=== PATIENT | female | born 1950 | race Caucasian/White ===

== ENCOUNTER 2016-10-11 10:52 | Day surgery (SDC) | payer MEDICARE ==
--- NOTE | ~2016-10-11 | EGD ---
EGD REPORT [facility] [address] [id number] NAME: KJ SANCHEZ : [birth year] STATUS : [place] [facility] [place] PAT#: [id number] AGE: 66 ADM/REG DATE : 10/11/16 MR#: [id number] REPORT SERV DATE: 10/11/16 DICTATED BY: SUSAN GATES DATE: 10/11/16 REPORT STATUS : Draft TRANSCRIBED BY: [facility] DATE: 10/11/16 [facility] Center Patient Name: Kj Sanchez Date of : 1950 Attending MD: SUSAN GATES MD Procedure Date No Time: 10/11/2016 Procedure: Upper GI endoscopy Indications: Oropharyngeal phase dysphagia, Esophageal dysphagia, Dysphagia Referring MD: SILKE PRINCE MD Medicines: Monitored Anesthesia Care Complications: No immediate complications. Procedure: Pre-Anesthesia Assessment: - ASA Grade Assessment: III - A patient with severe systemic disease. After obtaining informed consent, the endoscope was passed under direct vision. Throughout the procedure, the patient's blood pressure, pulse, and oxygen saturations were monitored continuously. The GIF [id number] was introduced through the mouth, and advanced to the second part of duodenum. The upper GI endoscopy was accomplished without difficulty. The patient tolerated the procedure well. Findings: No endoscopic abnormality was evident in the esophagus to explain the patient's complaint of dysphagia. It was decided, however, to proceed with dilation of the entire esophagus. A guidewire was placed and the scope was withdrawn. Dilation was performed with a Savary dilator with no resistance at 48 Fr. Mild erythema was found at the gastroesophageal junction. Biopsies were taken with a cold forceps for histology. Biopsies were taken with a cold forceps for histology. Localized mildly erythematous mucosa without bleeding was found in the gastric antrum. Biopsies were taken with a cold forceps for histology. The duodenal bulb and 2nd part of the duodenum were normal. The cardia and gastric fundus were normal on retroflexion. Impression: - No endoscopic esophageal abnormality to explain patient's dysphagia. Esophagus dilated. Dilated. - Erythema at the gastroesophageal junction. Biopsied. - Erythematous mucosa in the antrum. Biopsied. - Normal duodenal bulb and 2nd part of the duodenum. Recommendation: - Patient has a contact number available for EGD REPORT [address] [address] NAME: KJ SANCHEZ : [birth year] STATUS : [place] [facility] [place] PAT#: [id number] AGE: 66 ADM/REG DATE : 10/11/16 MR#: [id number] REPORT SERV DATE: 10/11/16 DICTATED BY: SUSAN GATES DATE: 10/11/16 REPORT STATUS : Draft TRANSCRIBED BY: [facility] DATE: 10/11/16 emergencies. The signs and symptoms of potential delayed complications were discussed with the patient. Return to normal activities tomorrow. Written discharge instructions were provided to the patient. - Regular diet. - Continue present medications. - Await pathology results. - Return to GI clinic in 4 weeks. If dysphagia persists then plan on speech path evaluation and modified barium swallow. Procedure Code(s): --- Professional --- 85421, Esophagogastroduodenoscopy, flexible, transoral; with insertion of guide wire followed by passage of dilator(s) through esophagus over guide wire 31947, Esophagogastroduodenoscopy, flexible, transoral; with biopsy, single or multiple Diagnosis Code(s): --- Professional --- K22.9, Disease of esophagus, unspecified K31.9, Disease of stomach and duodenum, unspecified R13.12, Dysphagia, oropharyngeal phase R13.14, Dysphagia, pharyngoesophageal phase CPT copyright 2013 [employer]. All rights reserved. The codes documented in this report are preliminary and upon solar sales advisor review may be revised to meet current compliance requirements. SUSAN GATES MD 10/11/2016 12:16 PM This report has been signed electronically. Number of Addenda: 0 Note Initiated On: 10/11/2016 11:44 AM Scope Withdrawal Time 0 hours 0 minutes 0 seconds [id number] [id number]
[~2016-10-11 10:52] MED LIST: AMB10 PO; ANOROELLIPTA INH; B121000P IM; BIOTIN PO; CALTRA600D PO; EFFEX75 PO; ENBREL50 MG/ML SC; FLONASE NAS; INSTRINSI OR; KDUR20 PO; KLOR-CON 1010 MEQ PO; LORTAB10 PO; MAGNESIUM PO; MAXZIDE PO; MSCONTIN PO; NASONEX NAS; NEUR300 PO; NORCO1 TAB PO; P125 PO; PR25 PO; PRAV10 PO; PREM625 PO; PRILOSEC40 MG PO; PRIN10 PO; PROTONIX PO; RANITIDINE300 MG PO; REQUIP2 PO; SINGULAIR1 PO; SOMA250 MG OR; SOMATAB PO; SPIRIVA INH; SUCR PO; V5 PO; VALIUM10 MG PO; VIT C PO; VITAMIN B-625 MG OR; XALAT OPH; XELJANZ XR11 MG PO; ZESTRIL20 MG PO
[2017-01-02] MEDS ORDERED: VENTOLIN HFA INH (12:42)
[2017-01-02] MEDS ORDERED: REQUIP2 PO (12:46)
== END 2016-10-11 23:59 | disposition home or self-care (01) ==
LOC: DMU 10:52
PROVIDERS: Internal Medicine Gastroenterology
PROC: 0D758ZZ Dilation of Esophagus, Via Natural or Artificial Opening Endoscopic (ICD-10-PCS; 2016-10-11)
PROC: 0DB48ZX Excision of Esophagogastric Junction, Via Natural or Artificial Opening Endoscopic, Diagnostic (ICD-10-PCS; principal; 2016-10-11 12:30)
PROC: 0DB68ZX Excision of Stomach, Via Natural or Artificial Opening Endoscopic, Diagnostic (ICD-10-PCS; 2016-10-11 12:30)
DX: K31.9 Disease of stomach and duodenum, unspecified (principal); K22.10 Ulcer of esophagus without bleeding; R13.12 Dysphagia, oropharyngeal phase; R13.14 Dysphagia, pharyngoesophageal phase; J44.9 Chronic obstructive pulmonary disease, unspecified; I10 Essential (primary) hypertension; M06.9 Rheumatoid arthritis, unspecified; Z88.8 Allergy status to other drugs, medicaments and biological substances; Z88.6 Allergy status to analgesic agent; Z79.899 Other long term (current) drug therapy; Z79.891 Long term (current) use of opiate analgesic
CPT/HCPCS: 88305

== ENCOUNTER 2017-01-19 22:49 | Inpatient (IN) | payer MEDICARE ==
[~2017-01-19] VITALS: Ht 177.8 cm; Wt 79.4 kg
--- NOTE | ~2017-01-19 | HP ---
History And Physical [place] [address] [facility] [place] [address] NAME: KJ PENA : [birth year] STATUS : ADM [facility] PAT#: [id number] AGE: 66 ADM/REG DATE : 01/19/17 MR#: [id number] REPORT SERV DATE: 01/20/17 DICTATED BY: ESTER LYNNE DATE: 01/20/17 REPORT STATUS : Draft TRANSCRIBED BY: MODRamone DATE: 01/20/17 DATE OF ADMISSION: 01/19/2017 CHIEF COMPLAINT: Chest pain and shortness of breath. HISTORY OF PRESENT ILLNESS: This 66-year-old white female, smoker, came in complaining of shortness of breath and chest pain. Chest pain was described as constant, worse when she took a deep breath. She had a pulmonary embolus workup in the emergency room, which was unremarkable. The patient stated she did have an outpatient chest CT which revealed coronary artery calcification. PAST MEDICAL HISTORY: Hypertension, COPD, rheumatoid arthritis. PAST SURGICAL HISTORY: She has neurostimulators in her chest and back. She has some ulnar pain and back pain. She has had a cholecystectomy, tonsillectomy, hysterectomy, ankle surgery, bunion surgery, back surgery, right and left elbow surgery. SOCIAL HISTORY: She smokes one pack per day. Does not drink alcohol. Is independent with activities of daily living. FAMILY HISTORY: Mom of old age. Recently dad of heart disease. ALLERGIES: THE PATIENT IS ALLERGIC TO NSAIDS CAUSES STOMACH PAIN, DILANTIN, STATINS, TEGRETOL, AND PAMELOR. MEDICATIONS AT HOME: Sucralfate 1 g q.i.d.; Xeljanz XR 11 mg daily; Remeron 30 mg q.h.s.; Protonix 40 mg b.i.d.; hydrocodone 10/325 one q.6 h. p.r.n. pain; MS Contin 30 mg q.12 h.; KCl 10 mEq q.i.d.; lisinopril 20 mg b.i.d.; Effexor XR 75 mg daily; Wellbutrin SR 150 mg b.i.d.; Requip 4 mg t.i.d., she does not take this as prescribed; Dyazide one daily; clonidine 0.1 mg at bedtime; Proventil inhaler; Breo Ellipta 62.5/25 one puff daily. REVIEW OF SYSTEMS: CONSTITUTIONAL: No fever, sweats, or rigors. HEENT: Eyes: No blurred or double vision, vision loss or glaucoma. No headache, hearing loss, or tinnitus. CARDIOVASCULAR: Chest pain as above. No palpitations or syncope. She states she has had some edema, dyspnea on exertion. RESPIRATORY: She has had some cough, wheezing, some pleuritic pain. GASTROINTESTINAL: No nausea, vomiting, hematemesis, or abdominal pain. MUSCULOSKELETAL: She does have arthralgia, arthritis, or back pain. INTEGUMENT: No rash or suspicious skin lesions. NEUROLOGIC: No memory loss, gait disturbance, or weakness. HEMATOLOGIC: No anemia, iron deficiency, or B12 deficiency. PSYCHIATRIC: She had some depression and anxiety. : No dysuria or hematuria. ENDOCRINE: No history of diabetes or thyroid disease. History And Physical [address] [address] NAME: KJ PENA : [birth year] STATUS : ADM [facility]#: [id number] AGE: 66 ADM/REG DATE : 01/19/17 MR#: [id number] REPORT SERV DATE: 01/20/17 DICTATED BY: ESTER LYNNE DATE: 01/20/17 REPORT STATUS : Draft TRANSCRIBED BY: MOE DATE: 01/20/17 PHYSICAL EXAMINATION: VITAL SIGNS: Blood pressure is 135/77, temperature 98.4, pulse 80, respirations 20, O2 saturation 95% on room air. CONSTITUTIONAL: Alert and appropriate. PSYCHIATRIC: Alert and oriented x3. Memory intact. Affect appropriate. HEENT: Atraumatic and normocephalic. Oral palate without lesion. Eyes: Pupils are reactive and anicteric. Conjunctivae clear. NECK: No adenopathy. Supple. No thyromegaly or masses. RESPIRATORY: Scattered expiratory wheezes. No chest wall tenderness. CARDIOVASCULAR: Regular rate and rhythm. No murmurs. No carotid or femoral bruits. Distal pulses diminished. ABDOMEN: Soft and nontender. No masses. SKIN: No rash or suspicious lesions. NEUROLOGIC: The patient moves all four extremities. Cranial nerves II through XII intact. LYMPHATIC: No adenopathy of the neck, axilla, or femoral regions. MUSCULOSKELETAL: Range of motion intact in upper and lower extremities. LABORATORY DATA: V/Q scan, low probability. Laboratory work: Hemoglobin 10.7, white count 8.4, platelets 347. Sodium 143, potassium 3.8, BUN 24, creatinine 1.78, glucose 93. IMPRESSION/PLAN: 1. Acute renal failure, likely secondary to dehydration. We will hold lisinopril and Dyazide, will give 500 mL IV fluids. 2. Chest pain. Will trend troponins. The patient wishes to do stress test as an outpatient. We will give low-dose aspirin and beta-lyssa. 3. Chronic obstructive pulmonary disease exacerbation, on p.o. prednisone. Encouraged smoking cessation. 4. Chronic pain. Continue medications. 5. Rheumatoid arthritis. NGM/MODL Ester Lynne MD / [id number] CC: Guru Ethel Carlton
--- NOTE | ~2017-01-19 | DS ---
Discharge Summary [facility] [address] [facility] [place]. [address] NAME: KJ PENA : [birth year] STATUS : DIS IN PAT#: [id number] AGE: 66 ADM/REG DATE : 01/20/17 MR#: [id number] REPORT SERV DATE: 01/22/17 DICTATED BY: GOVIND POLO DATE: 01/21/17 REPORT STATUS : Draft TRANSCRIBED BY: MODL DATE: 01/21/17 ADMISSION DATE: 01/20/2017 DISCHARGE DATE: 01/21/2017 REASON FOR ADMISSION: Chest pain and shortness of breath. DISCHARGE DIAGNOSES: 1. Shortness of breath and lower extremity edema, likely multifactorial in origin secondary to mild chronic obstructive pulmonary disease exacerbation and possible diastolic dysfunction. 2. Acute kidney injury on chronic kidney injury, improved. 3. Rheumatoid arthritis. 4. Mild chronic obstructive pulmonary disease exacerbation. 5. Recent history of multifocal lung nodule status post biopsy, reportedly benign. 6. Tobacco abuse, current smoker. 7. Chronic pain with narcotic dependence. PERTINENT IMAGING AND PROCEDURES PERFORMED THIS ADMISSION: 1. DVT ultrasound 01/19/2017; no evidence of acute right lower right lower extremity DVT. 2. V/Q scan 01/20/2017, impression: The findings are consistent with airway disease with patchy diffuse airway, deposition of the aerosolized tracer. No definitive evidence of pulmonary embolus. Preliminary report was rendered by [facility] at the time of the study. 3. Renal ultrasound 01/20/2017, cortical thinning and mild increase in renal cortical echotexture compatible with a component of medical renal disease. No current evidence of obstruction. Small intrarenal calculi bilaterally. 4. Transthoracic echocardiogram, 01/20/2017, impression: Technically difficult study due to limited acoustic windows. Normal LV size and systolic function. Estimated EF 60%. No regional wall motion abnormalities. Normal right ventricular size and systolic function. Normal left atrial size. No significant valve disease. HOSPITAL COURSE: Please refer to the history and physical from the admitting physician for full history of this patient. Briefly, the patient presented with several days of shortness of breath on exertion as well as some description of chest pain. Initially in the ED, her D-dimer is slightly elevated, and therefore pulmonary embolism was ruled out. Given her kidney disease, V/Q scan was obtained and was found to be low risk for PE as well as DVT ultrasound of the right lower extremity which was negative for DVT. The patient was found to have an EKG without any signs of ischemic disease, and her troponin was negative less than 0.02 times several times. She was placed on medical therapy with aspirin, beta lyssa initially, and the patient said that any cardiac workup she would wish to have done as an outpatient, perhaps if stress test was recommended. For the patient's shortness of breath and lower extremity edema, she was started on 40 mg of prednisone daily. Continued on her home inhalers and was also diuresed with 40 mg IV Lasix Discharge Summary [place] [address] [facility] [place]. [address] NAME: KJ PENA : [birth year] STATUS : DIS IN PAT#: [id number] AGE: 66 ADM/REG DATE : 01/20/17 MR#: [id number] REPORT SERV DATE: 01/22/17 DICTATED BY: GOVIND POLO DATE: 01/21/17 REPORT STATUS : Draft TRANSCRIBED BY: MOE DATE: 01/21/17 daily with a resolution of her lower extremity edema. The combination of the prednisone and the diuretics did result in resolution of her shortness of breath as well, and today the day of discharge, she is walking down the halls on room air with no complaints. She did undergo a transthoracic echocardiogram, and although it is a difficult study, it did not reveal any cardiac dysfunction. Today was my first day meeting the patient but on history she did tell me that she has been out of her home diuretic times several days for about 5 days prior to admission which may have contributed to her presentation. Regarding her shortness of breath, I think it is likely multifactorial in origin and she could possibly have some diastolic dysfunction as well as her known COPD that was contributing. Given her improvement I have opted her to discharge her home with her prior home medications, and I have written a prescription for prior diuretic that she had been out of, and I will continue her on 40 mg of prednisone daily for a total of 5 day course. Of note, the patient does have a recent history of multifocal lung nodules on recent CT scan and did undergo a bronchoscopy and biopsy earlier this month on 01/03/2017. I reviewed the pathology and it appears that this is non malignant appearing though the patient does have followup with Pulmonary established, and she is to follow up with them this coming Friday for a repeat CT scan and then a followup visit with her shipping clerk on this coming Friday. I have encouraged her to keep those appointments. The patient presented with acute kidney injury in the setting of CKD. Her creatinine on presentation was 1.78 which is higher than her baseline which appears to me to be between 1.2 and 1.4. With the aforementioned therapies, her creatinine on discharge is back to its baseline of 1.33. She did undergo a renal ultrasound as above that is consistent with medical renal disease. The patient was continued on her home medications for rheumatoid arthritis as well as her home narcotic regimen for her chronic pain syndrome. DISCHARGE MEDICATIONS: Diclofenac gel 4 times daily as needed; 150 mg Wellbutrin standard release p.o. twice per day; Maxzide 75/50 mg tablet p.o. daily; Remeron 30 mg p.o. at bedtime; 30 mg of MS Contin p.o. every 12 hours; [place] 10/325, 1 tab p.o. every 6 hours p.r.n.; 40 mg pantoprazole p.o. twice per day; Carafate 1 g p.o. 4 times a day p.r.n.; Xeljanz 11 mg p.o. daily; 75 mg of Effexor p.o. 3 times a day; 40 mg of prednisone p.o. daily until 01/24/2017; albuterol inhaler inhaled every 4 hours p.r.n.; Requip 2 mg p.o. 3 times per day; clonidine 0.1 mg p.o. at bedtime; Lisinopril 20 mg p.o. twice per day; Anoro Ellipta 62.5/25 one inhalation daily; potassium chloride 10 mEq p.o. 4 times a day. Of note, I will go and confirm with the patient that she is supposed to be taking Effexor 75 mg p.o. 3 times daily which is what our pharmacist has recorded as her home medications. Followup; as mentioned above, the patient will have prompt follow up with Pulmonology this coming week on Friday with a repeat CT scan on Friday. Again, I have encouraged her to continue her home medications and have refilled her prescription for diuretic which she had run out of as well as prednisone taper. Discharge Summary [facility] [address] [address] NAME: KJ PENA : 46 STATUS : DIS IN PAT#: [id number] AGE: 66 ADM/REG DATE : 01/20/17 MR#: [id number] REPORT SERV DATE: 01/22/17 DICTATED BY: GOVIND POLO DATE: 01/21/17 REPORT STATUS : Draft TRANSCRIBED BY: MOE DATE: 01/21/17 Regarding the patient's chest pain, this resolved and she had several troponin checks that were negative. She did not wish to undergo any further workup as an inpatient but could be considered for a stress test as an outpatient. I will defer to her PCP for this. Approximately, 1 hour was spent coordinating this patient's discharge today. EFRA/MOE Govind Polo MD / [id number] CC: Kenny Everett MD [facility]
[~2017-01-19 22:49] MED LIST changes: +VENTOLIN HFA INH
[2017-01-19 23:10] LABS: BASOPHILS 0.4 %; BASOPHILS ABSOLUTE 0.03 10/3/uL (0.0-0.16); EOSINOPHILS 1.7 %; EOSINOPHILS ABSOLUTE 0.14 10/3/uL (0.0-0.53); ER CBC TAT 0 Hrs 03 Mins; HEMATOCRIT 32.2 % (36.0-48.0); HEMOGLOBIN 10.7 g/dL (12.0-16.0); IMMATURE GRANULOCYTES 0.1 %; IMMATURE GRANULOCYTES ABSOLUTE 0.01 10/3/uL (0.0-0.11); LYMPHOCYTES 18.6 %; LYMPHOCYTES ABSOLUTE 1.56 10/3/uL (0.67-4.30); MEAN CORPUS HGB CONC 33.2 g/dL (32.0-36.0); MEAN CORPUSCULAR HEMOGLOB 32.7 pg (26.0-34.0); MEAN CORPUSCULAR VOLUME 98.5 fL (80-100); MEAN PLATELET VOLUME 8.9 fL (9.2-13.0); MONOCYTES ABSOLUTE 0.59 10/3/uL (0.21-1.20); NEUTROPHILS 72.2 %; NEUTROPHILS ABSOLUTE 6.04 10/3/uL (2.02-8.40); PLATELET COUNT 347 10/3/uL (150-400); RBC DISTRIBUTION WIDTH 14.7 % (12.0-16.0); RED CELL COUNT 3.27 10/6/uL (4.0-5.6); WHITE BLOOD CELLS 8.4 10/3/uL (4.5-10.5)
[2017-01-19 23:12] LABS: MANUAL DIFF NO %
[2017-01-19 23:18] LABS: PARTIAL THROMBO TIME 26.8 SEC (22.5-37.2)
[2017-01-19 23:28] LABS: CALCIUM, SERUM 8.6 MG/DL (8.5-10.4); CHEST PAIN PROFILE TAT 0 Hrs 21 Mins; CHLORIDE, SERUM 109 MMOL/L (96-112); CO2 (CARBON DIOXIDE) 25 MMOL/L (24-34); GFR AFRICAN AMERICAN 33 ML/MIN (>=60); GFR NON AFRICAN AMERICAN 29 ML/MIN (>=60); GLUCOSE, SERUM 93 MG/DL (60-99); POTASSIUM, SERUM 3.8 MMOL/L (3.5-5.3); SODIUM, SERUM 143 MMOL/L (135-148); TROPONIN I <0.02 NG/ML (<0.05)
[2017-01-19 23:29] LABS: BUN (BLOOD UREA NITROGEN) 24 MG/DL (6-23); CREATININE 1.78 MG/DL (0.55-1.02)
[2017-01-19 23:43] LABS: D-DIMER QUANTITATIVE 1.57 ug/mLFEU (< 0.50)
[2017-01-19 23:46] LABS: ALLENS TEST Pos; BE (BASE EXCESS) 0.7 MEQ/L (0 +/- 2.5); HCO3 (ACTUAL BICARBONATE) 24.2 MEQ/L (23-27); HEMOBLOGIN CONTENT 10.9 G/DL (12-16); INSTRUMENT SERIAL # 8087; METHEMOGLOBIN 0.3 % (0-3); O2 CONTENT 13.7 VOL% (18-24); OPERATOR ID 17589; PCO2 (CO2 TENSION) 35 MMHG (35-45); PO2 (O2 TENSION) 69 MMHG (79-93); SAMPLE Arterial; pH 7.46 (7.37-7.43)
[2017-01-20 00:24] LABS: ALBUMIN 3.4 G/DL (3.5-5.0); TOTAL PROTEIN 6.6 G/DL (6.0-8.5)
[2017-01-20 00:25] LABS: ALKALINE PHOSPHATASE 105 U/L (45-117); DIRECT BILIRUBIN 0.1 MG/DL (0.0-0.4); INDIRECT BILIRUBIN(NOT ORDER) 0.2 MG/DL (0.1-0.9); SGOT(AST) 21 U/L (5-40); SGPT(ALT) 24 U/L (5-65); TOTAL BILIRUBIN 0.3 MG/DL (0-1.2)
[2017-01-20] MEDS ORDERED: WELLSR150 PO (04:07)
[2017-01-20] MEDS ORDERED: EFFEX75 PO (04:07)
[2017-01-20] MEDS ORDERED: NORCO1 TAB PO (04:08)
[2017-01-20] MEDS ORDERED: PROTONIX PO (04:08)
[2017-01-20] MEDS ORDERED: SUCR PO (04:11)
[2017-01-20] MEDS ORDERED: MAXZIDE PO (04:11)
[2017-01-20] MEDS ORDERED: REQUIP2 PO (04:12)
[2017-01-20] MEDS ORDERED: XELJANZ XR11 MG PO (04:14)
[2017-01-20] MEDS ORDERED: CAT1 PO (04:15)
[2017-01-20] MEDS ORDERED: PRIN20 PO (04:16)
[2017-01-20] MEDS ORDERED: VOLTAREN1 % TOP (04:18)
[2017-01-20] MEDS ORDERED: REMERON30 MG PO (04:19)
[2017-01-20] MEDS ORDERED: ANOROELLIPTA INH (04:19)
[2017-01-20] MEDS ORDERED: VENTOLIN HFA INH (04:20)
[2017-01-20] MEDS ORDERED: MSCONTIN PO (04:25)
[2017-01-20] MEDS ORDERED: KDUR10 PO (04:25)
[2017-01-20 07:45] LABS: TROPONIN I <0.02 NG/ML (<0.05)
[2017-01-20 10:35] LABS: ASCORBIC ACID (UR NOT ORDER) NEG (NEG); BILIRUBIN, URINE NEGATIVE (NEG); KETONE, URINE NEGATIVE (NEG); LEUKOCYTE ESTERASE(NOT OR NEG (NEG); WBC (NOT ORDERED) (RFLEX) < 1 (0-5)
[2017-01-20 11:41] LABS: ALBUMIN 3.4 G/DL (3.5-5.0); BUN (BLOOD UREA NITROGEN) 25 MG/DL (6-23); CHLORIDE, SERUM 106 MMOL/L (96-112); CO2 (CARBON DIOXIDE) 23 MMOL/L (24-34); CREATININE 1.33 MG/DL (0.55-1.02); GFR AFRICAN AMERICAN 47 ML/MIN (>=60); GFR NON AFRICAN AMERICAN 41 ML/MIN (>=60); PHOSPHORUS, SERUM 3.7 MG/DL (2.5-4.5); POTASSIUM, SERUM 3.8 MMOL/L (3.5-5.3); SODIUM, SERUM 141 MMOL/L (135-148)
[2017-01-20 11:42] LABS: GLUCOSE, SERUM 153 MG/DL (60-99)
[2017-01-20 22:19] LABS: BASOPHILS 0.2 %; BASOPHILS ABSOLUTE 0.02 10/3/uL (0.0-0.16); EOSINOPHILS 0 %; HEMATOCRIT 30.9 % (36.0-48.0); HEMOGLOBIN 10.4 g/dL (12.0-16.0); IMMATURE GRANULOCYTES 0.2 %; IMMATURE GRANULOCYTES ABSOLUTE 0.02 10/3/uL (0.0-0.11); LYMPHOCYTES 17.4 %; LYMPHOCYTES ABSOLUTE 1.39 10/3/uL (0.67-4.30); MEAN CORPUS HGB CONC 33.7 g/dL (32.0-36.0); MEAN CORPUSCULAR HEMOGLOB 32.8 pg (26.0-34.0); MEAN CORPUSCULAR VOLUME 97.5 fL (80-100); MEAN PLATELET VOLUME 9.5 fL (9.2-13.0); MONOCYTES 9.7 %; MONOCYTES ABSOLUTE 0.78 10/3/uL (0.21-1.20); NEUTROPHILS 72.5 %; PLATELET COUNT 378 10/3/uL (150-400); RBC DISTRIBUTION WIDTH 14.5 % (12.0-16.0); RED CELL COUNT 3.17 10/6/uL (4.0-5.6)
[2017-01-20 22:22] LABS: MANUAL DIFF NO %
[2017-01-21 06:38] LABS: BASOPHILS 0.1 %; BASOPHILS ABSOLUTE 0.01 10/3/uL (0.0-0.16); EOSINOPHILS 0.8 %; EOSINOPHILS ABSOLUTE 0.06 10/3/uL (0.0-0.53); HEMATOCRIT 30.1 % (36.0-48.0); IMMATURE GRANULOCYTES 0.3 %; IMMATURE GRANULOCYTES ABSOLUTE 0.02 10/3/uL (0.0-0.11); LYMPHOCYTES 27.2 %; LYMPHOCYTES ABSOLUTE 2.05 10/3/uL (0.67-4.30); MEAN CORPUS HGB CONC 33.2 g/dL (32.0-36.0); MEAN CORPUSCULAR HEMOGLOB 32.5 pg (26.0-34.0); MEAN CORPUSCULAR VOLUME 97.7 fL (80-100); MEAN PLATELET VOLUME 9.4 fL (9.2-13.0); MONOCYTES 9.8 %; MONOCYTES ABSOLUTE 0.74 10/3/uL (0.21-1.20); NEUTROPHILS 61.8 %; NEUTROPHILS ABSOLUTE 4.67 10/3/uL (2.02-8.40); PLATELET COUNT 361 10/3/uL (150-400); RBC DISTRIBUTION WIDTH 14.6 % (12.0-16.0); RED CELL COUNT 3.08 10/6/uL (4.0-5.6); WHITE BLOOD CELLS 7.6 10/3/uL (4.5-10.5)
[2017-01-21 06:39] LABS: MANUAL DIFF NO %
[2017-01-21 06:53] LABS: ALBUMIN 3.2 G/DL (3.5-5.0); CHLORIDE, SERUM 105 MMOL/L (96-112); CHOLESTEROL 219 MG/DL (< 200); CREATININE 1.33 MG/DL (0.55-1.02); GFR AFRICAN AMERICAN 47 ML/MIN (>=60); GFR NON AFRICAN AMERICAN 41 ML/MIN (>=60); HDL CHOLESTEROL 72 MG/DL (> 49); LDL CHOLESTEROL 126 MG/DL (< 130); NON-HDL CHOLESTEROL 147 MG/DL (< 160); PHOSPHORUS, SERUM 3.1 MG/DL (2.5-4.5); POTASSIUM, SERUM 3.2 MMOL/L (3.5-5.3); SODIUM, SERUM 143 MMOL/L (135-148); TRIGLYCERIDE 105 MG/DL (< 150)
[2017-01-21 06:54] LABS: BUN (BLOOD UREA NITROGEN) 31 MG/DL (6-23); CO2 (CARBON DIOXIDE) 30 MMOL/L (24-34); GLUCOSE, SERUM 104 MG/DL (60-99)
[2017-01-21] MEDS ORDERED: ASAB PO (12:51)
[2017-01-21] MEDS ORDERED: MAXZIDE (12:53)
[2017-01-21] MEDS ORDERED: P20 PO (12:54)
== END 2017-01-21 14:40 | disposition home or self-care (01) | DRG 683 ==
LOC: ENRESERVDT → ENRESERVTM → ENRESERV → ER 22:49 → CDU1 23:59 → CDU2 23:59 → 5NO 01-20 17:25 → CDU2 01-20 17:25 → 5NO 01-20 21:35
PROVIDERS: Emergency Medicine; Hospitalist; Internal Medicine; Specialist
DX: N17.9 Acute kidney failure, unspecified (principal); J44.1 Chronic obstructive pulmonary disease with (acute) exacerbation; F11.20 Opioid dependence, uncomplicated; E86.0 Dehydration; G89.29 Other chronic pain; M06.9 Rheumatoid arthritis, unspecified; F17.210 Nicotine dependence, cigarettes, uncomplicated; N18.9 Chronic kidney disease, unspecified
CPT/HCPCS: 36600; 71020; 76775; 78582; 80048; 80061; 80069; 80076; 81001; 82570; 82805; 83036; 83735; 83880; 84156; 84300; 84484; 84540; 85025; 85379; 85610; 85730; 93005; 93306; 93970; 94640; 96374; 99285; A9270-GY; A9540; A9567; J2930